=== PATIENT | male | born 2000 | race American Indian/Alaskan Native ===

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

== ENCOUNTER 2018-04-24 15:28 | Emergency (ER) | payer MEDICAID, OTHER ==
[2018-04-24 15:35] VITALS: BP 112/71
[2018-04-24] MEDS ORDERED: ROBITUSSIN PO ONE (16:55)
[2018-04-24] MEDS ORDERED: DELTASONE PO ONE (16:56)
--- NOTE | 2018-04-24 17:24 | Emergency Department Report ---
Minor Respiratory - HPI Chief Complaint: Sore Throat Stated Complaint: FLU LIKE SYMPTOMS Time Seen by Provider: 04/24/18 16:41 Duration: 1 week Pain Location: Throat Severity: mild Minor Respiratory: Yes Sore Throat, Yes Able to Tolerate Fluids, Yes Cough, No Rhinorrhea, No Ear Pain, No Sick Contacts, No Hemoptysis, No Chest Pain, No Shortness of Breath, No Fever Other History: This is a 18-year-old male presents with his 15-year-old brother with similar symptoms complaining of cough congestion and body aches for the past one week. Patient states that this is a case flu. Patient states he had a fever but none at the moment. Patient states he was able to go to work due to him being sick. Patient denies abdominal pain, chest pain or shortness of breath ED Review of Systems ROS: Stated complaint: FLU LIKE SYMPTOMS Other details as noted in HPI Comment: All other systems reviewed and negative Endocrine: no symptoms reported Skin: denies: rash, lesions ED Past Medical Hx - Past Medical History Previous Medical History?: No Additional medical history: allergies - Surgical History Past Surgical History?: No Additional Surgical History: t &A - Social History Smoking Status: Never Smoker Substance Use Type: None - Medications Home Medications: Home Medications Medication Instructions Recorded Confirmed Last Taken Type Acetaminophen/Codeine [Tylenol #3] 1 tab PO Q6H PRN #14 tab 04/29/16 Unknown Rx Sulfamethoxazole/Trimethoprim 1 each PO BID #10 tablet 04/29/16 Unknown Rx [Bactrim DS TAB] cephALEXin [Keflex] 500 mg PO QID #20 cap 04/29/16 Unknown Rx Ibuprofen [Motrin] 400 mg PO Q8H #25 tablet 04/24/18 Unknown Rx Loratadine [Claritin] 10 mg PO DAILY PRN #20 tablet 04/24/18 Unknown Rx guaiFENesin [Robitussin] 200 mg PO TID #100 ml 04/24/18 Unknown Rx Minor Respiratory Exam - Exam General: Vital signs noted. No distress. Alert and acting appropriately. HEENT: Yes Moist Mucous Membranes, No Pharyngeal Erythema, No Pharyngeal Exudates, No Rhinorrhea, No Conjuctival Injection, No Frontal Tenderness, No Maxillary Tenderness Ear: Neither TM Bulge, Neither TM Erythema, Neither EAC Pain, Neither EAC Discharge Neck: Yes Supple, No Adenopathy Lungs: Yes Good Air Exchange, No Wheezes, No Ronchi, No Stridor, No Cough, No Labored Respirations, No Retractions, No Use of Accessory Muscles, No Other Abnormal Lung Sounds Heart: Yes Regular, No Murmur Abdomen: Yes Normal Bowel Sounds, No Tenderness, No Peritoneal Signs Skin: No Rash, No Edema Neurologic: Alert and oriented, no deficits. Musculoskeletal: Unremarkable. ED Course Vital Signs 04/24/18 15:33 Temperature 98.3 F Pulse Rate 73 Respiratory 18 Rate Blood Pressure 112/71 O2 Sat by Pulse 98 Oximetry ED Medical Decision Making - Medical Decision Making 18-year-old male presents with flulike symptoms. Fever resolved no fever during the ED stay. Discussed with mother symptomatic relief with [id number] medications. Discussed continue Tylenol and Motrin as needed for fever and pain. Discussed increase fluids and diet intake. Discussed rest much needed. Discussed daily vitamin C for immune booster. Discussed follow-up with primary care physician in 3-5 days. Patient verbally states he understands and will comply the following instructions and follow-up Vital signs stable. Patient is in no acute distress Critical care attestation.: If time is entered above; I have spent that time in minutes in the direct care of this critically ill patient, excluding procedure time. ED Disposition Clinical Impression: Viral syndrome, Flu-like symptoms Disposition: - TO HOME OR SELFCARE Is pt being admited?: No Does the pt Need Aspirin: No Condition: Stable Instructions: Viral Syndrome (ED), Influenza in Children (ED) Additional Instructions: Make sure to follow up with the primary care physician as discussed. Take all your medications as you've been prescribed. If you have any worsening symptoms or develop new symptoms please return to ED immediately. Prescriptions: guaiFENesin [Robitussin] 200 mg PO TID #100 ml Ibuprofen [Motrin] 400 mg PO Q8H #25 tablet Loratadine [Claritin] 10 mg PO DAILY PRN #20 tablet PRN Reason: Allergy Symptoms Referrals: REBECCA BLAKE MD [Staff Physician] - 3-5 Days Forms: Accompanied Note, Work/School Release Form(ED) Time of Disposition: 17:26
== END 2018-04-24 17:50 | disposition home or self-care (01) ==
LOC: ED 15:28
DX: B34.9 Viral infection, unspecified (principal); J11.1 Influenza due to unidentified influenza virus with other respiratory manifestations
CPT/HCPCS: 99282; J7512